=== PATIENT | female | born 1960 | race Caucasian/White ===

== ENCOUNTER 2017-10-11 20:14 | Emergency (ER) | payer OTHER, MEDICAID ==
[~2017-10-11] VITALS: Ht 170.2 cm; Wt 95.3 kg
[2017-10-11 20:22] VITALS: BP 135/90
--- NOTE | 2017-10-11 20:22 | NUR ---
TO BED # 8 AMBULATORY, REPORT GIVEN TO GARRETT
--- NOTE | 2017-10-11 20:25 | NUR ---
57/F PERSISTENT PRODUCTIVE COUGH X 3 WEEKS. PT REPORTS SOB. RHONCHI NOTED THROUGHOUT WITH DIMINISHED LOBES. PT ABLE TO SPEAK FULL LENGTH WITHOUT DIFFICULTY, NO ACCESSORY MUSCLE USE, PT NOTED WITH COUGHING. PMH: HTN, DM, ANGIOPLASTY, SMOKER
--- NOTE | 2017-10-11 20:27 | NUR ---
Dr. Quiñones evaluating patient at bedside.
[2017-10-11] MEDS ORDERED: methylPREDNISolone SS 125 MG/2 ML VIAL IVP ONE (20:30)
--- NOTE | 2017-10-11 20:33 | NUR ---
X-Ray at bedside.
[2017-10-11] MEDS ORDERED: MAG SULF 2000 MG/WATER PREMIX 50 ML IV ONE (20:35)
[2017-10-11 20:57] LABS: BASOPHILS # (AUTO) 0.1 K/uL (0.00-0.22); BASOPHILS % (AUTO) 0.6 % (0.0-2.0); EOSINOPHILS # (AUTO) 0.4 K/uL (0-0.4); EOSINOPHILS % (AUTO) 3.5 % (0.0-4.0); HEMATOCRIT 37.1 % (36-48); HEMOGLOBIN 12.2 g/dL (12.0-16.0); LYMPHOCYTES # (AUTO) 3.2 K/uL (2.5-16.5); LYMPHOCYTES % (AUTO) 24.6 % (20.5-51.1); MEAN CORPUSCULAR HEMOGLOBIN 29 pg (27-31); MEAN CORPUSCULAR HGB CONC 33 g/dL (33-37); MEAN CORPUSCULAR VOLUME 86.6 fL (80-94); MONOCYTES # (AUTO) 0.7 K/uL (0.8-1.0); MONOCYTES % (AUTO) 5.6 % (1.7-9.3); NEUTROPHILS # (AUTO) 8.5 K/uL (1.8-7.7); NEUTROPHILS % (AUTO) 65.7 % (42.2-75.2); PLATELET COUNT (AUTO) 328 K/uL (140-450); RED BLOOD CELL COUNT(AUTO) 4.29 MIL/uL (4.20-5.40); RED CELL DISTRIBUTION WIDTH 14.1 % (11.6-13.7); WHITE BLOOD COUNT (AUTO) 12.9 K/uL (4.8-10.8)
[2017-10-11 21:19] LABS: ANION GAP 13.7 (8-16); CARBON DIOXIDE 24.4 mmol/L (21-32); CREATININE 0.8 mg/dL (0.6-1.3); POTASSIUM 4.1 mmol/L (3.5-5.1)
[2017-10-11 21:21] LABS: ALBUMIN 3.2 g/dL (3.4-5.0); TOTAL BILIRUBIN 0.4 mg/dL (0.0-1.0)
[2017-10-11] MEDS ORDERED: ALBUTEROL SULFATE/IPRATROPIU 3 ML SOL IH ONE (22:40)
--- NOTE | 2017-10-11 22:43 | NUR ---
Respiratory Therapist at bedside for respiratory intervention.
[2017-10-11] MEDS ORDERED: AMPICILLIN/SULBACTAM 1.5 GM in NACL 0.9% 50 ML IV ONE (23:30)
[2017-10-11] MEDS ORDERED: AMPICILLIN/SULBACTAM 1.5 GM VIAL ONE (23:46)
--- NOTE | 2017-10-12 00:24 | NUR ---
Patient discharged with v/s stable. Written and verbal after care instructions given and explained BY DR ROBERSON. Patient alert, oriented and verbalized understanding of instructions. Ambulatory with steady gait. All questions addressed prior to discharge. ID band removed. Patient advised to follow up with PMD. Rx of levaquin, A;BUTEROL, DEXTROMETHROPHAN/PROMETHAZINE, MEDROL given. Patient educated on indication of medication including possible reaction and side effects. Opportunity to ask questions provided and answered.
[2017-10-12 00:25] VITALS: BP 115/82
== END 2017-10-12 00:24 | disposition home or self-care (01) ==
LOC: MED 20:14
DX: J20.9 Acute bronchitis, unspecified (principal); E11.9 Type 2 diabetes mellitus without complications; I10 Essential (primary) hypertension; F17.210 Nicotine dependence, cigarettes, uncomplicated
CPT/HCPCS: 36415; 36600; 71045; 80053; 82803; 83880; 85025; 87040; 94640; 96365; 96366; 96367; 96375; 99285; J0295; J2930; J3475; J7620

== ENCOUNTER 2018-02-28 09:15 | Emergency (ER) | payer OTHER, MEDICAID ==
[~2018-02-28] VITALS: Ht 167.6 cm; Wt 104.3 kg
[2018-02-28 09:20] VITALS: BP 156/98
--- NOTE | 2018-02-28 09:40 | NUR ---
57/F BIB SELF, C/O OF RIGHT EYE PAIN, SWELLING, AND EXCESSIVE TEARS. CONSTANT THROBBING PAIN 6/10. PATIENT HAS BLURRY VISION IN RIGHT EYE. PATIENT STATES SHE HAD SHRIMP THE NIGHT PRIOR, DENIES INTRODUCTION OF ANY OTHER AGENTS. DENIES TRUAMA OR INJURY. PATIENT HAS CLEAR BILATERAL LUNG SOUNDS, DENIES SOB, OR CP. PATIENT DENIES N/V/D OR ANY ABDOMINAL DISCOMFORT. AOX4, STEADY GAIT, CLEAR SPEECH, SAFETY PRECAUTIONS IN PLACE.
[2018-02-28] MEDS ORDERED: KETOROLAC 60 MG/2 ML VIAL IM ONE (10:45)
[2018-02-28 12:09] VITALS: BP 142/86
== END 2018-02-28 12:09 | disposition home or self-care (01) ==
LOC: MED 09:15
DX: D32.9 Benign neoplasm of meninges, unspecified (principal); E11.9 Type 2 diabetes mellitus without complications; I10 Essential (primary) hypertension
CPT/HCPCS: 70450; 70480; 96372; 99284; J1885